=== PATIENT | female | born 1945 | race Caucasian/White ===

== ENCOUNTER 2017-09-09 16:22 | Emergency (ER) | payer OTHER ==
[~2017-09-09] VITALS: Ht 142.2 cm; Wt 87.8 kg
[~2017-09-09 16:22] MED LIST: CALCIUM PO; CRANBERRY500 MG PO; DILACOR XR240 MG PO; FOLIC ACID PO; IRON PO; LIPITOR20 MG PO; LISINOPRIL20 MG PO; METFORMIN HCL1000 M1; MULTIVITAMIN PO; OMEGA PO; PLAVIX75 MG PO; VIT B6 PO
[2017-09-09 17:38] LABS: HEMATOCRIT 38.8 % (36.0-46.0); HEMOGLOBIN 13.5 G/DL (11.9-15.5); MCH 32.4 PG (29.0-34.0); MCHC 34.8 G/DL (30.0-36.0); PLATELET COUNT 194 K/uL (156-360); RBC DIS.WIDTH-SD 44.6 % (39-53); RED BLOOD COUNT 4.17 M/uL (3.80-5.20)
[2017-09-09 17:46] LABS: CHLORIDE 96 mEq/L (99-109); POTASSIUM 3.2 mEq/L (3.7-5.4); SODIUM 136 mEq/L (136-147)
[2017-09-09 17:47] LABS: GLUCOSE 190 mg/dL (70-99)
[2017-09-09 17:51] LABS: CREATININE 0.8 mg/dL (0.6-1.3); GFR ESTIMATE (CALCULATED) > 59 mL/min/
[2017-09-09 17:52] LABS: UREA NITROGEN (BUN) 20 mg/dL (9-23)
[2017-09-09] MEDS ORDERED: VENTOLIN HFA18 GM IH (18:44)
[2017-09-09] MEDS ORDERED: TESSALON PERLE100 MG PO (18:44)
[2017-09-09] MEDS ORDERED: DOXYCYCLINE MO100 MG PO (18:44)
[2017-09-09 20:00] VITALS: BP 135/69
== END 2017-09-09 20:01 | disposition home or self-care (01) ==
LOC: EME 16:22
DX: J18.9 Pneumonia, unspecified organism (principal); F32.9 Major depressive disorder, single episode, unspecified; Z79.02 Long term (current) use of antithrombotics/antiplatelets; R05 Cough; R50.9 Fever, unspecified
CPT/HCPCS: 71046; 80048; 83605; 85027; 87040; 94640; 94664; 99281; 99285; J0696

== ENCOUNTER 2017-11-07 14:37 | Emergency (ER) | payer OTHER ==
[~2017-11-07] VITALS: Ht 144.8 cm; Wt 84.8 kg
[~2017-11-07 14:37] MED LIST changes: +DOXYCYCLINE MO100 MG PO; +TESSALON PERLE100 MG PO; +VENTOLIN HFA18 GM IH
[2017-11-07] MEDS ORDERED: PERCOCET 5/31 TABLET PO (16:54)
[2017-11-07 17:52] VITALS: BP 128/74
== END 2017-11-07 17:52 | disposition home or self-care (01) ==
LOC: EME 14:37
DX: M17.11 Unilateral primary osteoarthritis, right knee (principal); W19.XXXA Unspecified fall, initial encounter; Z96.652 Presence of left artificial knee joint; M85.861 Other specified disorders of bone density and structure, right lower leg; I10 Essential (primary) hypertension; E11.9 Type 2 diabetes mellitus without complications; Z79.84 Long term (current) use of oral hypoglycemic drugs; Z79.82 Long term (current) use of aspirin
CPT/HCPCS: 73564; 99281; 99284

== ENCOUNTER → 2018-01-30 | Outpatient (CLI) | payer OTHER ==
[~2018-01-30] MED LIST changes: +ASPIR 8181 M1 PO; +COZAAR25 MG PO; +GLUCOPHAGE1000 MG PO; +LIPITOR40 MG PO; +LORADAMED10 MG PO; +NORVASC5 MG PO; +OMEGA 3 PO; +PERCOCET 5/31 TABLET PO; +PROZAC40 MG PO; +VITAMIN D31000 UNIT PO; +[UNRECOGNIZED DRUG - OTHER] PO
== END | disposition home or self-care (01) ==
DX: Z01.818 Encounter for other preprocedural examination (principal); M17.11 Unilateral primary osteoarthritis, right knee; R26.2 Difficulty in walking, not elsewhere classified; M25.561 Pain in right knee; M25.661 Stiffness of right knee, not elsewhere classified; M62.81 Muscle weakness (generalized); Z74.1 Need for assistance with personal care
CPT/HCPCS: 97161 GP; 97165 GO; 97530 GP; 97535 GO; G8978 GP; G8979 GP; G8980 GP; G8987 GO; G8988 GO; G8989 GO

== ENCOUNTER 2018-02-04 22:02 | Inpatient (IN) | payer OTHER ==
[~2018-02-04] VITALS: Ht 144.8 cm; Wt 80.3 kg
[2018-02-05 08:18] VITALS: BP 127/56
[2018-02-05 12:40] VITALS: BP 127/56
[2018-02-05 13:24] LABS: HEMOGLOBIN 13.7 G/DL (11.9-15.5); MCH 32.9 PG (29.0-34.0); MCHC 34.3 G/DL (30.0-36.0); MCV 95.9 FL (83-99); PLATELET COUNT 227 K/uL (156-360); RBC DIS.WIDTH-CV 12.2 % (11.8-14.6); RBC DIS.WIDTH-SD 43.1 % (39-53); RED BLOOD COUNT 4.17 M/uL (3.80-5.20); WHITE BLOOD COUNT 5.8 K/uL (4.1-10.2)
[2018-02-05 16:06] VITALS: BP 158/68
[2018-02-05 19:41] VITALS: BP 167/75
[2018-02-06] VITALS: BP 152/66
[2018-02-06 03:45] VITALS: BP 135/63
[2018-02-06 06:14] LABS: HEMATOCRIT 36.5 % (36.0-46.0); HEMOGLOBIN 12.6 G/DL (11.9-15.5); MCV 92.9 FL (83-99)
[2018-02-06 08:12] VITALS: BP 148/66
[2018-02-06 08:26] LABS: CHLORIDE 96 MEQ/L (99-109); CREATININE 0.6 MG/DL (0.6-1.3); GFR ESTIMATE (CALCULATED) > 59 mL/min/; GLUCOSE 187 mg/dL (70-99); POTASSIUM 3.6 MEQ/L (3.7-5.4); SODIUM 134 MEQ/L (136-147); UREA NITROGEN (BUN) 15 mg/dL (9-23)
[2018-02-06 11:18] VITALS: BP 155/69
[2018-02-06 16:02] VITALS: BP 143/65
[2018-02-06 20:16] VITALS: BP 141/64
[2018-02-07 00:22] VITALS: BP 133/63
[2018-02-07 06:34] LABS: HEMATOCRIT 34.6 % (36.0-46.0)
[2018-02-07 08:09] VITALS: BP 131/60
[2018-02-07 11:20] VITALS: BP 133/60
[2018-02-07 15:47] VITALS: BP 137/63
[2018-02-07 20:16] VITALS: BP 135/62
[2018-02-07 23:30] VITALS: BP 146/66
[2018-02-08 04:30] VITALS: BP 155/68
[2018-02-08 07:18] VITALS: BP 136/71
[2018-02-08] MEDS ORDERED: Tylenol Extra Streng PO (08:32)
[2018-02-08] MEDS ORDERED: LOVENOX40 MG/0.4 SC (08:34)
[2018-02-08 11:26] VITALS: BP 128/774
== END 2018-02-08 14:34 | DRG 470 ==
LOC: 2SOUTH → ENRESERV 22:02 → 2SOUTH 02-05 06:25 → 3WEST 02-05 06:25 → 2SOUTH 02-05 08:56 → ENRESERV 02-05 12:20 → 3WEST 02-05 12:28 → 2SOUTH 02-05 16:37 → 3WEST 02-08 14:34
PROVIDERS: Orthopaedic Surgery
PROC: 0SRC0J9 Replacement of Right Knee Joint with Synthetic Substitute, Cemented, Open Approach (ICD-10-PCS; principal; 2018-02-05)
DX: M17.11 Unilateral primary osteoarthritis, right knee (principal); I10 Essential (primary) hypertension; Z86.73 Personal history of transient ischemic attack (TIA), and cerebral infarction without residual deficits; I25.10 Atherosclerotic heart disease of native coronary artery without angina pectoris; Z85.828 Personal history of other malignant neoplasm of skin; Z88.0 Allergy status to penicillin; Z96.641 Presence of right artificial hip joint; Z96.652 Presence of left artificial knee joint
CPT/HCPCS: 71045; 73560; 80048; 82948; 85014; 85018; 85027; 94799; 97530 GP; C1713; J0131; J1170; J1650; J1815; J2250; J2795; J7030; J7050